=== PATIENT | male | born 1960 | race Caucasian/White ===

== ENCOUNTER 2016-12-19 11:06 | Observation (INO) | payer SELFPAY ==
[~2016-12-19] VITALS: Ht 182.9 cm; Wt 89.0 kg
[~2016-12-19 11:06] MED LIST: ATOR20TA42; COUM5TAB; DIPH2%T; MENTAX
[2016-12-19 11:09] VITALS: BP 132/69; PULSE 82; RESP 20; TEMP 97.4; O2SAT 98
[2016-12-19] MEDS ORDERED: B COTAB PO (11:23)
[2016-12-19] MEDS ORDERED: LISI2.5T3 PO (11:23)
[2016-12-19] MEDS ORDERED: JANT5TAB PO (11:23)
[2016-12-19] MEDS ORDERED: ATOR40TA16 PO (11:23)
[2016-12-19] MEDS ORDERED: TAMS0.4C4 PO (11:23)
[2016-12-19] MEDS ORDERED: FINA5TAB2 PO (11:23)
[2016-12-19] MEDS ORDERED: ASPI81CH CHEW (11:23)
[2016-12-19 11:30] VITALS: O2SAT 98
[2016-12-19] MEDS ORDERED: SODIUM CHLORIDE 0.9% FLUSH 5 ML FLUSH IVF PRN (11:30)
[2016-12-19] MEDS ORDERED: MORPHINE SULFATE 4 MG/ML INJ IV PUSH ONE (11:30)
--- NOTE | 2016-12-19 11:30 | PD ---
HPI Chief Complaint: Complaint Time Seen by Provider: 11:25 Travel History International Travel<30 days: No Contact w/Intl Traveler<30days: No Traveled to known affect area: No History of Present Illness HPI 56-year-old male with a history of hypertension, hyperlipidemia, TIA, heart valve replacement anticoagulated on Coumadin, kidney stones presents to the emergency department for evaluation of hematuria for one week. The patient states that he has had hematuria in the past but typically it goes away after a few days, this is the longest it has ever lasted. States that this morning he also began to have right lower back pain and right-sided abdominal pain. He denies any fever, chills, nausea, vomiting, diarrhea, constipation, burning with urination, painful urination. States that he has had urinary frequency over the past week as well. States that his symptoms today are similar to prior episodes of kidney stones. States that he has been taking Flomax for the past week in case it is a kidney stone. Last INR was checked 3 weeks ago and was 3. Patient is here visiting from [place]. No other complaints. PFSH Past Medical History Hx Anticoagulant Therapy: Yes (coumadin, asa) AAA: Yes (4 CM) Cardiovascular Problems: Yes (valve) High Cholesterol: Yes Cerebrovascular Accident: Yes Hypertension: Yes Kidney Stones: Yes Past Surgical History Genitourinary Surgery: Yes (VASECTOMY) Valve Replacement: Yes (2004) Social History Alcohol Use: Yes (RARE) Tobacco Use: Yes (1 PPD) Substance Use: No Allergies-Medications (Allergen,Severity, Reaction): Uncoded Allergies: ALEVE (Allergy, Intermediate, 12/06/06) Reported Meds & Prescriptions Reported Meds & Active Scripts Active Reported Tamsulosin (Tamsulosin HCl) 0.4 Mg Cap 0.4 Mg PO HS Jantoven (Warfarin) 5 Mg Tab 5 Mg PO DAILY Finasteride 5 Mg Tab 5 Mg PO DAILY Do not crush. Atorvastatin (Atorvastatin Calcium) 40 Mg Tab 40 Mg PO HS B-Complex Plus Vitamin C (B-Complex W/ C & Calcium) 1 Tab 1 Tab PO DAILY Aspirin 81 Mg Chew 81 Mg CHEW DAILY Lisinopril 2.5 Mg Tab 2.5 Mg PO DAILY Review of Systems Except as stated in HPI: all other systems reviewed are Neg Physical Exam Narrative GENERAL: Well-nourished and well-developed pleasant male patient in no acute distress who is nontoxic appearing. SKIN: Warm and dry. HEAD: Normocephalic and atraumatic. EYES: No injection, drainage, or hyphema noted. PERRLA. EOMI. ENT: No nasal drainage noted. Oropharynx is clear. NECK: Supple and the trachea is midline. CARDIOVASCULAR: Regular rate and rhythm. RESPIRATORY: Breath sounds are equal bilaterally with no accessory muscle use, wheezing, rhonchi, or crackles. GASTROINTESTINAL: Mild right lower quadrant and right flank tenderness to palpation. No rebound tenderness or guarding. Abdomen is soft and nondistended. MUSCULOSKELETAL: No obvious deformities, swelling, cyanosis, or ecchymosis is present throughout the upper and lower extremities. Patient has full range of motion without any signs of neurovascular compromise. BACK: Right CVA tenderness. NEUROLOGICAL: Awake, alert, and oriented. Normal speech and gait. Cranial nerves are grossly intact. Data Data Last Documented VS Vital Signs Date Time Temp Pulse Resp B/P Pulse Ox O2 Delivery O2 Flow Rate FiO2 12/19/16 11:30 98 12/19/16 11:09 97.4 82 20 132/69 Room Air Orders Complete Blood Count With Diff (12/19/16 11:24) Comprehensive Metabolic Panel (12/19/16 11:24) Prothrombin Time / Inr (Pt) (12/19/16 11:24) Act Partial Throm Time (Ptt) (12/19/16 11:24) Urinalysis - C+S If Indicated (12/19/16 11:24) Ct Abd/Pel W/O Iv Contrast (12/19/16 11:24) Iv Access Insert/Monitor (12/19/16 11:24) Ecg Monitoring (12/19/16 11:24) Oximetry (12/19/16 11:24) Sodium Chloride 0.9% Flush (Ns Flush) (12/19/16 11:30) Morphine Inj (Morphine Inj) (12/19/16 11:30) Ondansetron Inj (Zofran Inj) (12/19/16 11:45) Urine Culture (12/19/16 11:30) Hydromorphone Pf Inj (Dilaudid Pf Inj) (12/19/16 12:15) Ceftriaxone Inj (Rocephin Inj) (12/19/16 12:30) Hydromorphone Pf Inj (Dilaudid Pf Inj) (12/19/16 15:00) Sodium Chlor 0.9% 1000 Ml Inj (Ns 1000 M (12/19/16 14:46) Admit Order (Ed Use Only) (12/19/16 15:51) Labs Laboratory Tests Test 12/19/16 11:30 White Blood Count 14.2 TH/MM3 Red Blood Count 5.56 MIL/MM3 Hemoglobin 15.9 GM/DL Hematocrit 47.0 % Mean Corpuscular Volume 84.5 FL Mean Corpuscular Hemoglobin 28.6 PG Mean Corpuscular Hemoglobin 33.9 % Concent Red Cell Distribution Width 15.2 % Platelet Count 205 TH/MM3 Mean Platelet Volume 7.5 FL Neutrophils (%) (Auto) 75.5 % Lymphocytes (%) (Auto) 16.0 % Monocytes (%) (Auto) 7.0 % Eosinophils (%) (Auto) 0.8 % Basophils (%) (Auto) 0.7 % Neutrophils # (Auto) 10.7 TH/MM3 Lymphocytes # (Auto) 2.3 TH/MM3 Monocytes # (Auto) 1.0 TH/MM3 Eosinophils # (Auto) 0.1 TH/MM3 Basophils # (Auto) 0.1 TH/MM3 CBC Comment DIFF FINAL Differential Comment Prothrombin Time 44.6 SEC Prothromb Time International 3.8 RATIO Ratio Activated Partial 42.2 SEC Thromboplast Time Urine Color DARK-BROWN Urine Turbidity HAZY Urine pH 5.5 Urine Specific [place] 1.025 Urine Protein 100 mg/dL Urine Glucose (UA) NEG mg/dL Urine Ketones TRACE mg/dL Urine Occult Blood LARGE Urine Nitrite NEG Urine Bilirubin NEG Urine Urobilinogen LESS THAN 2.0 MG/DL Urine Leukocyte Esterase TRACE Urine RBC /hpf Urine WBC 44 /hpf Urine Calcium Oxalate Crystals MANY /hpf Urine Mucus FEW /lpf Microscopic Urinalysis Comment CULTURE INDICATED Sodium Level 134 MEQ/L Potassium Level 5.3 MEQ/L Chloride Level 101 MEQ/L Carbon Dioxide Level 26.2 MEQ/L Anion Gap 7 MEQ/L Blood Urea Nitrogen 18 MG/DL Creatinine 1.17 MG/DL Estimat Glomerular Filtration 64 ML/MIN Rate Random Glucose 124 MG/DL Calcium Level 8.3 MG/DL Total Bilirubin 0.5 MG/DL Aspartate Amino Transf 39 U/L (AST/SGOT) Alanine Aminotransferase 35 U/L (ALT/SGPT) Alkaline Phosphatase 78 U/L Total Protein 7.2 GM/DL Albumin 3.7 GM/DL MDM Medical Decision Making Medical Screen Exam Complete: Yes Emergency Medical Condition: Yes Differential Diagnosis Kidney stone versus pyelonephritis versus supratherapeutic INR Narrative Course 56-year-old male presents to the emergency department for evaluation of hematuria for one week with right flank pain for 1 day. Patient is afebrile, vital signs are stable. He does have some tenderness to palpation of the right side of his abdomen and right flank. IV access is obtained, labs were drawn and sent. CT of the abdomen and pelvis has been ordered and is pending. CBC shows an elevated white blood count of 14.2. CMP shows mild hyperkalemia with potassium of 5.3 with hemolysis noted. INR is 3.8. Urinalysis shows 100 protein, trace ketones, large occult blood, trace leukocyte Estrace, innumerable red blood cells, 44 white blood cells, many calcium oxalate crystals and few mucus. CT of the abdomen and pelvis shows hematuria involving the lower pole of the right kidney as well as the urinary bladder. There are bilateral nonobstructing renal stones although there is mild hydronephrosis involving the right kidney. The stones are quite small. The largest measures 4 mm on the right. The patient is reassessed and is still complaining of right flank pain despite 2 doses of pain medication. Discussed all findings with the patient and family. Recommend admission for pyelonephritis with right flank pain and hematuria. Will likely need urology consultation. I discussed the case with my attending physician Dr. Massey who is aware of the patients history, physical examination findings, and treatment plan. Physician Communication Physician Communication I spoke with Dr. Ramirez [facility] agrees to admit the patient to his service. He also requests that I speak with urology prison warden. I spoke with Dr. Figueredo urologist who requests patient be kept NPO and may place a stent to alleviate patient's symptoms. Diagnosis Primary Impression: Pyelonephritis Additional Impressions: Hematuria Kidney stones Admitting Information Admitting Physician Requests: Miesha Levi Dec 19, 2016 11:30
[2016-12-19 11:43] LABS: AUTOMATED NEUTROPHIL # 10.7 TH/MM3 (1.8-7.7); BASOPHIL # 0.1 TH/MM3 (0-0.2); BASOPHIL % 0.7 % (0.0-2.0); EOSINOPHIL # 0.1 TH/MM3 (0-0.4); EOSINOPHIL % 0.8 % (0.0-4.0); HEMO FLAGS DIFF FINAL; LYMPHOCYTE # 2.3 TH/MM3 (1.0-4.8); MEAN CELL VOLUME 84.5 FL (80.0-100.0); MEAN CORPUSCULAR HEMOGLOBIN 28.6 PG (27.0-34.0); MEAN CORPUSCULAR HGB CONC 33.9 % (32.0-36.0); NEUT % 75.5 % (16.0-70.0); PLATELET COUNT 205 TH/MM3 (150-450); RED BLOOD COUNT 5.56 MIL/MM3 (4.50-5.90); RED CELL DISTRIBUTION WIDTH 15.2 % (11.6-17.2); WHITE BLOOD COUNT 14.2 TH/MM3 (4.0-11.0)
[2016-12-19] MEDS ORDERED: ONDANSETRON HCL 4 MG/2 ML VIAL IV PUSH ONE (11:45)
[2016-12-19 11:56] LABS: INTERNATIONAL NORMALIZED RATIO 3.8 RATIO; PROTHROMBIN TIME - PATIENT 44.6 SEC (9.8-11.6)
[2016-12-19 11:58] LABS: APTT (PATIENT) 42.2 SEC (24.3-30.1)
[2016-12-19 12:00] LABS: ANION GAP 7 MEQ/L (5-15); AST (GOT) 39 U/L (15-37); BICARBONATE 26.2 MEQ/L (21.0-32.0); BLOOD UREA NITROGEN 18 MG/DL (7-18); CHLORIDE 101 MEQ/L (98-107); GLOMERULAR FILTRATION RATE 64 ML/MIN (>89); SODIUM (NA) 134 MEQ/L (136-145)
[2016-12-19 12:04] LABS: BLOOD, URINE LARGE (NEG); CALCIUM OXALATE CRYSTALS,URINE MANY /hpf; COMMENT (UR) CULTURE INDICATED; CULTURE IF INDICATED CULTURE INDICATED; GLUCOSE,URINE NEG (NEG); KETONE, URINE TRACE mg/dL (NEG); MUCUS URINE FEW /lpf (OCC); NITRITE,URINE NEG (NEG); PH, URINE 5.5 (5.0-8.5); URINE COLOR DARK-BROWN (YELLW/STRAW)
[2016-12-19 12:05] LABS: POTASSIUM 5.3 MEQ/L (3.5-5.1)
[2016-12-19 12:08] LABS: ALKALINE PHOSPHATASE 78 U/L (45-117); ALT (GPT) 35 U/L (12-78); TOTAL BILIRUBIN ADULT 0.5 MG/DL (0.2-1.0)
[2016-12-19] MEDS ORDERED: HYDROmorphone HCL PF 1 MG/ML VIAL IV PUSH ONE (12:15)
[2016-12-19] MEDS ORDERED: cefTRIAXone INJ 1,000 MG in SODIUM CHLORIDE 0.9% INJ 100 ML IV ONE (12:30)
--- NOTE | 2016-12-19 13:59 | RADRPT ---
EXAM DATE/TIME: 12/19/2016 13:01 [place] COMPARISON: No previous studies available for comparison. INDICATIONS : Right flank pain and hematuria. ORAL CONTRAST: No oral contrast ingested. RADIATION DOSE: 8.43 CTDIvol (mGy) MEDICAL HISTORY : Cerebrovascular disease. Renal calculi. Hypertension. SURGICAL HISTORY : None. ENCOUNTER: Initial ACUITY: 1 week PAIN SCALE: 5/10 LOCATION: Right flank TECHNIQUE: Volumetric scanning of the abdomen and pelvis was performed. Using automated exposure control and ad justment of the mA and/or kV according to patient size, radiation dose was kept as low as reasonably achievable to obtain optimal diagnostic quality images. FINDINGS: LOWER LUNGS: The visualized lower lungs are clear. LIVER: Homogeneous density without lesion. There is no dilation of the biliary tree. No calcified gallston es. SPLEEN: Normal size without lesion. PANCREAS: Within normal limits. KIDNEYS: There is a slight increase in attenuation involving the lower pole calyces and infundibula on the rig ht. There is mild hydronephrosis without hydroureter. 3 tiny stones are seen on the collecting system of the right kidney. These measure between 2 and 4 mm. 2 tiny calcifications are seen on the left co llecting system without hydronephrosis. No ureteral stones. No perinephric stranding or fluid collect ions. ADRENAL GLANDS: Within normal limits. VASCULAR: A bifurcated endograft is observed. Diffuse calcified atherosclerotic plaque of the aorta. The chemehuevi aneurysm sac is collapsed around the endograft. BOWEL/MESENTERY: The stomach, small bowel, and colon demonstrate no acute abnormality. There is no free intraperitone al air or fluid. Scattered colonic diverticuli without acute inflammation. ABDOMINAL WALL: Within normal limits. RETROPERITONEUM: There is no lymphadenopathy. BLADDER: The urinary bladder is largely decompressed. High attenuation material is seen within the lumen consi stent with blood. REPRODUCTIVE: Mandible calcifications are seen involving the peripheral aspects of the prostate gland. No discrete mass. INGUINAL: There is no lymphadenopathy or hernia. MUSCULOSKELETAL: Within normal limits for patient age. CONCLUSION: 1. Hematuria involving the lower pole of the right kidney as well as the urinary bladder. There are b ilateral nonobstructing renal stones although there is mild hydronephrosis involving the right kidney . The stones are quite small. The largest measures 4 mm on the right. 2. Colonic diverticulosis. Tc Yusuf Jr., MD on December 19, 2016 at 13:42 Board Certified Radiologist. This report was verified electronically.
[2016-12-19] MEDS ORDERED: SODIUM CHLOR 0.9% 1000 ML INJ 1,000 ML IV SCH (14:46)
[2016-12-19] MEDS ORDERED: HYDROmorphone HCL PF 2 MG/ML VIAL IVS ONE (15:00)
--- NOTE | 2016-12-19 15:41 | PD ---
Data Data Last Documented VS Vital Signs Date Time Temp Pulse Resp B/P Pulse Ox O2 Delivery O2 Flow Rate FiO2 12/19/16 11:30 98 12/19/16 11:09 97.4 82 20 132/69 Room Air Orders Complete Blood Count With Diff (12/19/16 11:24) Comprehensive Metabolic Panel (12/19/16 11:24) Prothrombin Time / Inr (Pt) (12/19/16 11:24) Act Partial Throm Time (Ptt) (12/19/16 11:24) Urinalysis - C+S If Indicated (12/19/16 11:24) Ct Abd/Pel W/O Iv Contrast (12/19/16 11:24) Iv Access Insert/Monitor (12/19/16 11:24) Ecg Monitoring (12/19/16 11:24) Oximetry (12/19/16 11:24) Sodium Chloride 0.9% Flush (Ns Flush) (12/19/16 11:30) Morphine Inj (Morphine Inj) (12/19/16 11:30) Ondansetron Inj (Zofran Inj) (12/19/16 11:45) Urine Culture (12/19/16 11:30) Hydromorphone Pf Inj (Dilaudid Pf Inj) (12/19/16 12:15) Ceftriaxone Inj (Rocephin Inj) (12/19/16 12:30) Hydromorphone Pf Inj (Dilaudid Pf Inj) (12/19/16 15:00) Sodium Chlor 0.9% 1000 Ml Inj (Ns 1000 M (12/19/16 14:46) Labs Laboratory Tests Test 12/19/16 11:30 White Blood Count 14.2 TH/MM3 Red Blood Count 5.56 MIL/MM3 Hemoglobin 15.9 GM/DL Hematocrit 47.0 % Mean Corpuscular Volume 84.5 FL Mean Corpuscular Hemoglobin 28.6 PG Mean Corpuscular Hemoglobin 33.9 % Concent Red Cell Distribution Width 15.2 % Platelet Count 205 TH/MM3 Mean Platelet Volume 7.5 FL Neutrophils (%) (Auto) 75.5 % Lymphocytes (%) (Auto) 16.0 % Monocytes (%) (Auto) 7.0 % Eosinophils (%) (Auto) 0.8 % Basophils (%) (Auto) 0.7 % Neutrophils # (Auto) 10.7 TH/MM3 Lymphocytes # (Auto) 2.3 TH/MM3 Monocytes # (Auto) 1.0 TH/MM3 Eosinophils # (Auto) 0.1 TH/MM3 Basophils # (Auto) 0.1 TH/MM3 CBC Comment DIFF FINAL Differential Comment Prothrombin Time 44.6 SEC Prothromb Time International 3.8 RATIO Ratio Activated Partial 42.2 SEC Thromboplast Time Urine Color DARK-BROWN Urine Turbidity HAZY Urine pH 5.5 Urine Specific [place] 1.025 Urine Protein 100 mg/dL Urine Glucose (UA) NEG mg/dL Urine Ketones TRACE mg/dL Urine Occult Blood LARGE Urine Nitrite NEG Urine Bilirubin NEG Urine Urobilinogen LESS THAN 2.0 MG/DL Urine Leukocyte Esterase TRACE Urine RBC /hpf Urine WBC 44 /hpf Urine Calcium Oxalate Crystals MANY /hpf Urine Mucus FEW /lpf Microscopic Urinalysis Comment CULTURE INDICATED Sodium Level 134 MEQ/L Potassium Level 5.3 MEQ/L Chloride Level 101 MEQ/L Carbon Dioxide Level 26.2 MEQ/L Anion Gap 7 MEQ/L Blood Urea Nitrogen 18 MG/DL Creatinine 1.17 MG/DL Estimat Glomerular Filtration 64 ML/MIN Rate Random Glucose 124 MG/DL Calcium Level 8.3 MG/DL Total Bilirubin 0.5 MG/DL Aspartate Amino Transf 39 U/L (AST/SGOT) Alanine Aminotransferase 35 U/L (ALT/SGPT) Alkaline Phosphatase 78 U/L Total Protein 7.2 GM/DL Albumin 3.7 GM/DL [facility] Supervised Visit with DONTE: Yes Narrative Course The history, exam, and medical decision-making in the associated midlevel provider note were completed with my assistance. I reviewed and agree with the findings presented. I attest that I had a [id number] encounter with the patient on the same day, and personally performed and documented my assessment and findings in the medical record. *My assessment and Findings: This is a 56-year-old male who has a history of mechanical valve on anticoagulation who presents to the emergency department with right sided flank pain and hematuria. His INR slightly supratherapeutic. CT demonstrates some blood in the kidney and in the bladder with some hydronephrosis. He does have a leukocytosis. I'm not sure what's causing the patient's pain. It's possible that he passed a stone, he may also have pyelonephritis. Given we can't reverse his anticoagulation due to his mechanical valve I think it's reasonable to place him on antibiotics, continue pain control and admit him to the hospital for observation. Diagnosis Primary Impression: Pyelonephritis Additional Impression: Hematuria Sydnie Massey MD Dec 19, 2016 15:41
[2016-12-19] MEDS ORDERED: ACETAMINOPHEN 325 MG TAB PO PRN (16:30)
[2016-12-19] MEDS ORDERED: MAGNESIUM HYDROXIDE SUSP 30 ML CUP PO PRN (16:30)
[2016-12-19] MEDS ORDERED: ACETAMINOPHEN/HYDROcodone 325 MG/5 MG TAB PO PRN (16:30)
[2016-12-19] MEDS ORDERED: NALOXONE HCL 0.4 MG/ML AMP IV PRN (16:30)
[2016-12-19] MEDS ORDERED: ONDANSETRON HCL 4 MG/2 ML VIAL IVP PRN (16:30)
[2016-12-19] MEDS ORDERED: HYDROmorphone HCL PF 1 MG/ML VIAL IV PRN (16:30)
[2016-12-19] MEDS ORDERED: ACETAMINOPHEN/HYDROcodone 325 MG/7.5 MG TAB PO PRN (16:30)
[2016-12-19] MEDS ORDERED: SODIUM CHLORIDE 0.9% FLUSH 5 ML FLUSH FLUSH PRN (16:30)
[2016-12-19] MEDS ORDERED: PILL SPLITTER OTHER PRN (16:45)
[2016-12-19 17:20] VITALS: BP 103/68; PULSE 78; RESP 16; O2SAT 94
--- NOTE | 2016-12-19 17:22 | HHI.HP ---
[facility] Service [facility] Primary Care Physician Non-Staff Admission Diagnosis Right Pyelonephritis, Hematuria Diagnoses: Chief Complaint: hematuria Travel History International Travel<30 Days: No Contact w/Intl Traveler <30 Da: No Traveled to Known Affected Are: No History of Present Illness 56-year-old male with history of HTN, HLD, TIA, mechanical heart valve on Coumadin, AAA, nephrolithiasis, presents with a one-week history of hematuria. The patient reports he has had chronic intermittent hematuria however it has now been persistent over the past 1 week. No fevers/chills. He did have intermittent waxing/waning right flank pain with radiation into the right lower quadrant that started around 7:30am today. He called his urologist in [place] who instructed him to come to the ER. He has still been able to urinate. Urine described as mostly dark brown/red but has also seen bright red clots. In the past, nephrolithiasis has been treated with lithotripsy and others have passed on their own. He saw his urologist a few weeks ago, had a stone in the bladder at that time, did not have any pain. Denies any chest pain , palpitations, or shortness of breath. Denies any nausea/vomiting or diarrhea. Denies any dysuria or increased urinary urgency/frequency. Denies any other medical complaints at this time. Review of Systems Constitutional: DENIES: Fever, Chills, Dizziness, Change in appetite Endocrine: DENIES: Polydipsia, Polyuria, Polyphagia Eyes: DENIES: Blurred vision, Eye pain Ears, nose, mouth, throat: DENIES: Throat pain, Running Nose, Odynophagia Respiratory: DENIES: Cough, Shortness of breath Cardiovascular: DENIES: Chest pain, Palpitations, Dyspnea on Exertion, Lower Extremity Edema Gastrointestinal: COMPLAINS OF: Abdominal pain, DENIES: Constipation, Diarrhea , Nausea, Vomiting Genitourinary: COMPLAINS OF: Hematuria, DENIES: Urinary frequency, Urgency, Dysuria Musculoskeletal: DENIES: Back pain, Neck pain Integumentary: DENIES: Pruritus, Rash Hematologic/lymphatic: DENIES: Bruising, Lymphadenopathy Immunologic/allergic: DENIES: Eczema, Urticaria Neurologic: DENIES: Abnormal gait, Headache, Localized weakness Psychiatric: DENIES: Anxiety, Depression Except as stated in HPI: all other systems reviewed are Neg Past Family Social History Past Medical History HTN HLD TIAs 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 Atorvastatin (Atorvastatin Calcium) 40 Mg Tab 40 Mg PO HS B-Complex Plus Vitamin C (B-Complex W/ C & Calcium) 1 Tab 1 Tab PO DAILY Aspirin 81 Mg Chew 81 Mg CHEW DAILY Lisinopril 2.5 Mg Tab 2.5 Mg PO DAILY Allergies: Uncoded Allergies: ALEVE (Allergy, Intermediate, 12/06/06) Active Ordered Medications Current Medications Medications (Trade) Dose Ordered Sig/[place] Route Start Time Stop Time Status Last Admin (Rocephin Inj/NS Inj) 100 ml @ 200 mls/hr Q24H IV 12/20/16 12:00 (NS Flush) 2 ml UNSCH PRN FLUSH 12/19/16 16:30 (NS Flush) 2 ml BID FLUSH 12/19/16 21:00 (Zofran Inj) 4 mg Q6H PRN IVP 12/19/16 16:30 (Colace) 100 mg Q12H PO 12/19/16 18:00 (Milk Of Magnesia Liq) 30 ml Q12H PRN PO 12/19/16 16:30 (Tylenol) 650 mg Q6H PRN PO 12/19/16 16:30 ([place] 5-325 Mg) 1 tab Q4H PRN PO 12/19/16 16:30 ([place] 7.5-325 Mg) 1 tab Q4H PRN PO 12/19/16 16:30 (Dilaudid Pf Inj) 0.5 mg Q4H PRN IV 12/19/16 16:30 (Narcan Inj) 0.4 mg UNSCH PRN IV 12/19/16 16:30 (Lipitor) 40 mg HS PO 12/19/16 21:00 (Proscar) 5 mg DAILY PO 12/20/16 09:00 (Flomax) 0.4 mg HS PO 12/19/16 21:00 (Prinivil) 2.5 mg DAILY PO 12/20/16 09:00 (Pill Splitter) 1 ea UNSCH PRN OTHER 12/19/16 16:45 Family History Mother with cervical cancer, Father with prostate issues Social History Smokes tobacco,1 PPD since age 14 Denies alcohol use Denies illicit drug use Physical Exam Vital Signs Vital Signs Date Time Temp Pulse Resp B/P Pulse Ox O2 Delivery O2 Flow Rate FiO2 12/19/16 11:30 98 12/19/16 11:09 97.4 82 20 132/69 98 Room Air Physical Exam GENERAL: Well-nourished, well-developed pleasant middle aged male patient in [facility]. SKIN: Warm and dry. No rash. HEAD: Normocephalic. Atraumatic. EYES: Pupils equal and round. No scleral icterus. No injection or drainage. ENT: No nasal bleeding or discharge. Mucous membranes pink and moist. NECK: Supple. Trachea midline. CARDIOVASCULAR: Regular rate and rhythm. S1, S2 noted. Mechanical murmur noted. RESPIRATORY: No accessory muscle use. Clear to auscultation. Breath sounds equal bilaterally. GASTROINTESTINAL: Abdomen soft, nondistended, nontender. Normoactive bowel sounds x4. MUSCULOSKELETAL: No obvious deformities. Extremities without clubbing, cyanosis , or edema. No CVA tenderness currently. NEUROLOGICAL: Awake and alert. No obvious cranial nerve deficits. Motor grossly within normal limits. 5/5 muscle strength in bilateral upper and lower extremities. Normal speech. PSYCHIATRIC: Appropriate mood and affect; insight and judgment normal. Laboratory Laboratory Tests Test 12/19/16 11:30 White Blood Count 14.2 Red Blood Count 5.56 Hemoglobin 15.9 Hematocrit 47.0 Mean Corpuscular Volume 84.5 Mean Corpuscular Hemoglobin 28.6 Mean Corpuscular Hemoglobin 33.9 Concent Red Cell Distribution Width 15.2 Platelet Count 205 Mean Platelet Volume 7.5 Neutrophils (%) (Auto) 75.5 Lymphocytes (%) (Auto) 16.0 Monocytes (%) (Auto) 7.0 Eosinophils (%) (Auto) 0.8 Basophils (%) (Auto) 0.7 Neutrophils # (Auto) 10.7 Lymphocytes # (Auto) 2.3 Monocytes # (Auto) 1.0 Eosinophils # (Auto) 0.1 Basophils # (Auto) 0.1 CBC Comment DIFF FINAL Differential Comment Prothrombin Time 44.6 Prothromb Time International 3.8 Ratio Activated Partial 42.2 Thromboplast Time Urine Color DARK-BROWN Urine Turbidity HAZY Urine pH 5.5 Urine Specific [place] 1.025 Urine Protein 100 Urine Glucose (UA) NEG Urine Ketones TRACE Urine Occult Blood LARGE Urine Nitrite NEG Urine Bilirubin NEG Urine Urobilinogen LESS THAN 2.0 Urine Leukocyte Esterase TRACE Urine RBC Urine WBC 44 Urine Calcium Oxalate Crystals MANY Urine Mucus FEW Microscopic Urinalysis Comment CULTURE INDICATED Sodium Level 134 Potassium Level 5.3 Chloride Level 101 Carbon Dioxide Level 26.2 Anion Gap 7 Blood Urea Nitrogen 18 Creatinine 1.17 Estimat Glomerular Filtration 64 Rate Random Glucose 124 Calcium Level 8.3 Total Bilirubin 0.5 Aspartate Amino Transf 39 (AST/SGOT) Alanine Aminotransferase 35 (ALT/SGPT) Alkaline Phosphatase 78 Total Protein 7.2 Albumin 3.7 Date/Time Procedure Status Source Growth 12/19/16 11:30 Urine Culture Received Urine Clean Catch Pending Result Diagram: 12/19/16 1130 12/19/16 1130 Imaging Last Impressions Abdomen/Pelvis CT 12/19/16 1124 Signed Impressions: Service Date/Time: Monday, December 19, 2016 13:01 - CONCLUSION: 1. Hematuria involving the lower pole of the right kidney as well as the urinary bladder. There are bilateral nonobstructing renal stones although there is mild hydronephrosis involving the right kidney. The stones are quite small. The largest measures 4 mm on the right. 2. Colonic diverticulosis. Tc Yusuf Jr., MD Assessment and Plan Problem List: (1) Hematuria ICD Code: R31.9 Status: Acute (2) Pyelonephritis ICD Code: N12 Status: Acute (3) Kidney stones ICD Code: N20.0 Status: Acute Assessment and Plan 56-year-old male with history of HTN, HLD, TIA, mechanical heart valve on Coumadin, AAA, nephrolithiasis, presents with a one-week history of hematuria and 1 day hx of right flank pain Pyelonephritis/Hydronephrosis with Hematuria & R Flank Pain: Labs reviewed, WBC 14.2K. Afebrile. UA with large occult blood and RBCs, trace leuks, and [address] abd/pelvis images reviewed by me, shows hematuria involving the right kidney and urinary bladder; bilateral nonobstructing renal stones although there is mild hydronephrosis involving the right kidney; stones are quite small; largest measures 4 mm on the right. -Continue IV Rocephin -Monitor urine culture -S/p IVF bolus -Continue Flomax and Proscar -Hold aspirin/Coumadin -Monitor CBC, currently Hgb stable -Consult urology, ER discussed with Dr. Figueredo - keep NPO, may need ureteral stent placed Mechanical Valve with Supratherapeutic INR: on anticoagulation with Coumadin for mechanical valve. INR 3.8. -Hold Coumadin today. Plan to resume tomorrow with frequent INR monitoring. -Monitor daily INR and CBC. Hyperlipidemia: Chronic -continue patient's statin Hypertension: Chronic -continue patient's lisinopril -monitor BP, adjust antihypertensives as needed DVT Prophylaxis: teds/SCDs, Coumadin on hold with supratherapeutic INR Written by Alix Carrera, acting as scribe for Dr. Ramirez on 12/19/16 at 17: 46. All or portions of this note were transcribed by scribe [SAMIRA Boyd] . I, Dr. Aye Ramirez personally performed the history, physical exam, and medical decision making; and confirmed the accuracy of the information in the transcribed note. Authenticated by Dr. Aye Ramirez on 12/19/16 at 19:46. Discussed Condition With Patient, ER Alix Albarran PA-C Dec 19, 2016 17:22 Aye Ramirez MD Dec 19, 2016 19:47
[2016-12-19] MEDS: DOCUSATE SODIUM 100 MG CAP PO SCH (18:00)
[2016-12-19 18:04] VITALS: BP 123/69; PULSE 81; RESP 19; TEMP 96.6; O2SAT 94
[2016-12-19 19:15] VITALS: BP 122/67; PULSE 72; RESP 20; TEMP 97.6; O2SAT 95
--- NOTE | 2016-12-19 19:27 | PD.CONS ---
HPI Service Urology Consult Requested By Primary Care Physician Non-Staff Diagnosis: (1) Hematuria ICD Code: R31.9 (2) Pyelonephritis ICD Code: N12 (3) Kidney stones ICD Code: N20.0 History of Present Illness 56yo male with history of mechanical heart valve and TIA on coumadin as well as HTN admitted for right flank pain and concern for UTI seen in consultation for right hydronephrosis and nephrolithiasis. Patient reports he has a history of kidney stones in the past and is followed by a Urologist up [place] where he resides. [place]. He began to notice significant right flank pain earlier today, radiating to right groin and sharp that persisted with gross hematuria. He has passed some clots. Patient reports this is similar to his prior stone episodes. CT scan identified mild right hydronephrosis, however no stone noted along the ureter to cause obstruction. Patient now reports his pain has resolved. Denies any fevers, no Nausea or vomiting. Patient reports his hematuria clears up near the end of his stream. Review of Systems ROS Limitations: Clinical Condition Constitutional: DENIES: Fever Endocrine: DENIES: Polyuria Eyes: DENIES: Blurred vision Ears, nose, mouth, throat: DENIES: Hearing loss Respiratory: DENIES: Cough Cardiovascular: DENIES: Chest pain Gastrointestinal: DENIES: Abdominal pain, Nausea, Vomiting Genitourinary: COMPLAINS OF: Hematuria, DENIES: Dysuria Musculoskeletal: DENIES: Back pain Integumentary: DENIES: Abnormal pigmentation Hematologic/lymphatic: DENIES: Bruising Immunologic/allergic: DENIES: Eczema Neurologic: DENIES: Abnormal gait Psychiatric: DENIES: Anxiety Except as stated in HPI: all other systems reviewed are Neg Past Family Social History Past Medical History HTN HLD TIAs mechanical heart valve 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 Atorvastatin (Atorvastatin Calcium) 40 Mg Tab 40 Mg PO HS B-Complex Plus Vitamin C (B-Complex W/ C & Calcium) 1 Tab 1 Tab PO DAILY Aspirin 81 Mg Chew 81 Mg CHEW DAILY Lisinopril 2.5 Mg Tab 2.5 Mg PO DAILY Allergies: Uncoded Allergies: ALEVE (Allergy, Intermediate, 12/06/06) Active Ordered Medications Current Medications Medications (Trade) Dose Ordered Sig/Gary Route Start Time Stop Time Status Last Admin (Rocephin Inj/NS Inj) 100 ml @ 200 mls/hr Q24H IV 12/20/16 12:00 (NS Flush) 2 ml UNSCH PRN FLUSH 12/19/16 16:30 (NS Flush) 2 ml BID FLUSH 12/19/16 21:00 (Zofran Inj) 4 mg Q6H PRN IVP 12/19/16 16:30 (Colace) 100 mg Q12H PO 12/19/16 18:00 (Milk Of Magnesia Liq) 30 ml Q12H PRN PO 12/19/16 16:30 (Tylenol) 650 mg Q6H PRN PO 12/19/16 16:30 ([place] 5-325 Mg) 1 tab Q4H PRN PO 12/19/16 16:30 ([place] 7.5-325 Mg) 1 tab Q4H PRN PO 12/19/16 16:30 (Dilaudid Pf Inj) 0.5 mg Q4H PRN IV 12/19/16 16:30 (Narcan Inj) 0.4 mg UNSCH PRN IV 12/19/16 16:30 (Lipitor) 40 mg HS PO 12/19/16 21:00 (Proscar) 5 mg DAILY PO 12/20/16 09:00 (Flomax) 0.4 mg HS PO 12/19/16 21:00 (Prinivil) 2.5 mg DAILY PO 12/20/16 09:00 (Pill Splitter) 1 ea UNSCH PRN OTHER 12/19/16 16:45 Family History Mother with cervical cancer, Father with prostate issues Social History Smokes tobacco,1 PPD since age 14 Denies alcohol use Denies illicit drug use Physical Exam Vital Signs Date Time Temp Pulse Resp B/P Pulse Ox O2 Delivery O2 Flow Rate FiO2 12/19/16 18:04 96.6 81 19 123/69 94 12/19/16 17:20 78 16 103/68 94 12/19/16 11:30 98 12/19/16 11:09 97.4 82 20 132/69 98 Room Air Physical Exam GENERAL: This is a well-nourished, well-developed patient, in no apparent distress. SKIN: No rashes, ecchymoses or lesions. Cool and dry. HEAD: Atraumatic. Normocephalic.. EYES: Extraocular motions intact. No scleral icterus. No injection or drainage. ENT: Nose without bleeding, purulent drainage. Airway patent. NECK: Trachea midline. No JVD or lymphadenopathy. CARDIOVASCULAR: Normal pulses, well perfused extremities RESPIRATORY: Nonlabored respirations, equal chest rise GASTROINTESTINAL: Abdomen soft, non-tender, nondistended. GENITOURINARY: No CVA tenderness MUSCULOSKELETAL: Extremities without clubbing, cyanosis, or edema. NEUROLOGICAL: Awake and alert. Motor and sensory grossly within normal limits. Normal speech. Laboratory Tests Test 12/19/16 11:30 White Blood Count 14.2 Red Blood Count 5.56 Hemoglobin 15.9 Hematocrit 47.0 Mean Corpuscular Volume 84.5 Mean Corpuscular Hemoglobin 28.6 Mean Corpuscular Hemoglobin 33.9 Concent Red Cell Distribution Width 15.2 Platelet Count 205 Mean Platelet Volume 7.5 Neutrophils (%) (Auto) 75.5 Lymphocytes (%) (Auto) 16.0 Monocytes (%) (Auto) 7.0 Eosinophils (%) (Auto) 0.8 Basophils (%) (Auto) 0.7 Neutrophils # (Auto) 10.7 Lymphocytes # (Auto) 2.3 Monocytes # (Auto) 1.0 Eosinophils # (Auto) 0.1 Basophils # (Auto) 0.1 CBC Comment DIFF FINAL Differential Comment Prothrombin Time 44.6 Prothromb Time International 3.8 Ratio Activated Partial 42.2 Thromboplast Time Urine Color DARK-BROWN Urine Turbidity HAZY Urine pH 5.5 Urine Specific Dexter 1.025 Urine Protein 100 Urine Glucose (UA) NEG Urine Ketones TRACE Urine Occult Blood LARGE Urine Nitrite NEG Urine Bilirubin NEG Urine Urobilinogen LESS THAN 2.0 Urine Leukocyte Esterase TRACE Urine RBC Urine WBC 44 Urine Calcium Oxalate Crystals MANY Urine Mucus FEW Microscopic Urinalysis Comment CULTURE INDICATED Sodium Level 134 Potassium Level 5.3 Chloride Level 101 Carbon Dioxide Level 26.2 Anion Gap 7 Blood Urea Nitrogen 18 Creatinine 1.17 Estimat Glomerular Filtration 64 Rate Random Glucose 124 Calcium Level 8.3 Total Bilirubin 0.5 Aspartate Amino Transf 39 (AST/SGOT) Alanine Aminotransferase 35 (ALT/SGPT) Alkaline Phosphatase 78 Total Protein 7.2 Albumin 3.7 Date/Time Procedure Status Source Growth 12/19/16 11:30 Urine Culture Received Urine Clean Catch Pending Result Diagram: 12/19/16 1130 12/19/16 1130 Imaging Last Impressions Abdomen/Pelvis CT 12/19/16 1124 Signed Impressions: Service Date/Time: Monday, December 19, 2016 13:01 - CONCLUSION: 1. Hematuria involving the lower pole of the right kidney as well as the urinary bladder. There are bilateral nonobstructing renal stones although there is mild hydronephrosis involving the right kidney. The stones are quite small. The largest measures 4 mm on the right. 2. Colonic diverticulosis. Tc Yusuf Jr., MD Assessment and Plan Problem List: (1) Kidney stones ICD Code: N20.0 Status: Acute (2) Hematuria ICD Code: R31.9 Status: Acute (3) Pyelonephritis ICD Code: N12 Status: Acute Assessment and Plan 56yo male with history of nephrolithiasis and hematuria with INR of 3.8 -Review of CT scan identifies the mild right hydronephrosis, however no obstructing stone seen -Clinical exam reveals patient to be comfortable, no pain, no fevers, no N/V. No evidence of obstructive process -Patient likely passed a kidney stone, which would account for the mildly elevated WBC, pain, and hematuria -No surgical intervention indicated at this time -Recommend urine culture and control of his INR to prevent further bleeding -Patient also has a large prostate visible on CT scan and may be contributing to his hematuria -Instructed patient to follow-up with his Urologist back home after discharge -Please call with questions Emre Figueredo MD Dec 19, 2016 19:27
[2016-12-19] MEDS: SODIUM CHLORIDE 0.9% FLUSH 5 ML FLUSH FLUSH SCH (20:50)
[2016-12-19] MEDS ORDERED: TAMSULOSIN HCL 0.4 MG CAP PO SCH (21:00)
[2016-12-19] MEDS ORDERED: ATORVASTATIN 40 MG TAB PO SCH (21:00)
[2016-12-20 00:29] VITALS: BP 100/53; PULSE 85; RESP 20; O2SAT 95
[2016-12-20 04:03] VITALS: BP 113/62; PULSE 82; RESP 20; TEMP 98.8; O2SAT 95
[2016-12-20] MEDS: DOCUSATE SODIUM 100 MG CAP PO SCH (05:43)
[2016-12-20 06:48] LABS: INTERNATIONAL NORMALIZED RATIO 2.8 RATIO
[2016-12-20 06:54] LABS: AUTOMATED NEUTROPHIL # 12.1 TH/MM3 (1.8-7.7); BASOPHIL # 0.1 TH/MM3 (0-0.2); BASOPHIL % 0.7 % (0.0-2.0); EOSINOPHIL # 0.2 TH/MM3 (0-0.4); EOSINOPHIL % 1.5 % (0.0-4.0); HEMATOCRIT 49.2 % (39.0-51.0); HEMO FLAGS DIFF FINAL; LYMPH % 12.9 % (9.0-44.0); MEAN CELL VOLUME 83.7 FL (80.0-100.0); MEAN CORPUSCULAR HEMOGLOBIN 28.2 PG (27.0-34.0); MEAN CORPUSCULAR HGB CONC 33.7 % (32.0-36.0); MONO % 7.7 % (0.0-8.0); NEUT % 77.2 % (16.0-70.0); PLATELET COUNT 209 TH/MM3 (150-450); RED BLOOD COUNT 5.87 MIL/MM3 (4.50-5.90); RED CELL DISTRIBUTION WIDTH 15.6 % (11.6-17.2); WHITE BLOOD COUNT 15.6 TH/MM3 (4.0-11.0)
[2016-12-20 07:06] LABS: ANION GAP 8 MEQ/L (5-15); AST (GOT) 16 U/L (15-37); BICARBONATE 27.3 MEQ/L (21.0-32.0); BLOOD UREA NITROGEN 14 MG/DL (7-18); CHLORIDE 106 MEQ/L (98-107); GLOMERULAR FILTRATION RATE 67 ML/MIN (>89); POTASSIUM 4.6 MEQ/L (3.5-5.1); SODIUM (NA) 141 MEQ/L (136-145)
[2016-12-20 07:09] LABS: ALKALINE PHOSPHATASE 73 U/L (45-117); ALT (GPT) 30 U/L (12-78); TOTAL BILIRUBIN ADULT 0.7 MG/DL (0.2-1.0)
[2016-12-20 07:18] VITALS: BP 123/70; PULSE 92; RESP 18; TEMP 96.1; O2SAT 88
[2016-12-20] MEDS: SODIUM CHLORIDE 0.9% FLUSH 5 ML FLUSH FLUSH SCH (08:31)
[2016-12-20] MEDS ORDERED: LISINOPRIL 5 MG TAB PO SCH (09:00)
[2016-12-20] MEDS ORDERED: NON-FORMULARY DRUG (Lisinopril 2.5 MG) PO SCH (09:00)
[2016-12-20] MEDS ORDERED: FINASTERIDE 5 MG TAB PO SCH (09:00)
[2016-12-20] MEDS ORDERED: WARF-20 PO (09:08)
--- NOTE | 2016-12-20 09:10 | HHI.PR ---
Subjective Remarks Patient reports that he is feeling better. No more pain. Urine still dark. Objective Vitals Vital Signs Date Time Temp Pulse Resp B/P Pulse Ox O2 Delivery O2 Flow Rate FiO2 12/20/16 07:18 96.1 92 18 123/70 88 12/20/16 04:03 98.8 82 20 113/62 95 12/20/16 00:29 85 20 100/53 95 12/19/16 19:15 97.6 72 20 122/67 95 12/19/16 18:04 96.6 81 19 123/69 94 12/19/16 17:20 78 16 103/68 94 12/19/16 11:30 98 12/19/16 11:09 97.4 82 20 132/69 98 Room Air I/O 12/19/16 12/19/16 12/19/16 12/20/16 12/20/16 12/20/16 07:00 15:00 23:00 07:00 15:00 23:00 Output Total 400 ml 1000 ml Balance -400 ml -1000 ml Output Urine Total 400 ml 1000 ml # Voids 1 Result Diagram: 12/20/16 0600 12/20/16 0600 Imaging Last Impressions Abdomen/Pelvis CT 12/19/16 1124 Signed Impressions: Service Date/Time: Monday, December 19, 2016 13:01 - CONCLUSION: 1. Hematuria involving the lower pole of the right kidney as well as the urinary bladder. There are bilateral nonobstructing renal stones although there is mild hydronephrosis involving the right kidney. The stones are quite small. The largest measures 4 mm on the right. 2. Colonic diverticulosis. Tc Yusuf Jr., MD Objective Remarks GENERAL: This is a well-nourished, well-developed patient, in no apparent distress. CARDIOVASCULAR: Normal rate and regular rhythm without murmurs, gallops, or rubs. RESPIRATORY: Good respiratory efforts. Breath sounds equal and clear to auscultation bilaterally. GASTROINTESTINAL: Abdomen soft, non-tender, non-distended. Normal active bowel sounds MUSCULOSKELETAL: Extremities without cyanosis, or edema. NEURO: Alert & Oriented x4 to person, place, time, situation. Moves all ext x4 PSYCH: Appropriate mood and affect. A/P Problem List: (1) Hematuria ICD Code: R31.9 Status: Acute (2) Pyelonephritis ICD Code: N12 Status: Acute (3) Kidney stones ICD Code: N20.0 Status: Acute Assessment and Plan 56-year-old male admitted with hematuria, nephrolithiasis, concern for pyelonephritis. The patient was evaluated by urology. Assessment is that he probably passed a stone. His pain completely resolved. Urine culture at 24 hours is negative. The patient did not have any fevers or suprapubic pain. No dysuria. He is on Coumadin for heart valve.. His INR was mildly supratherapeutic. This was put on hold and INR went down to 2.8. The patient is not local, he plans to return home tomorrow and follow-up with his urologist and PCP on Thursday. He is discharged home. He was advised to hold Aspirin today and tomorrow. Go down to 4 mg on Coumadin until recheck on Thursday. He will follow up with his Urologist back home on Thursday. We discussed reasons to seek further emergent medical care. Discharge home in good condition Activity: Regular as tolerated Diet: Regular, Coumadin diet Meds: Per med rec Follow-up: With PCP and urology on Thursday Aye Ramirez MD Dec 20, 2016 09:10
--- NOTE | 2016-12-20 09:11 | HHI.DCPOC ---
Discharge Care Plan Diagnosis: (1) Kidney stones (2) Hematuria (3) Abnormal urinalysis Goals to Promote Your Health * To prevent worsening of your condition and complications * To maintain your health at the optimal level Directions to Meet Your Goals Take your medications as prescribed Follow your dietary instruction Follow activity as directed Keep your appointments as scheduled Take your immunizations and boosters as scheduled If your symptoms worsen call your PCP, if no PCP go to Urgent Care Center or Emergency Room Smoking is Dangerous to Your Health. Avoid second hand smoke Call the 24-hour hour crisis hotline for domestic abuse at Aye Ramirez MD Dec 20, 2016 09:10
[2016-12-20] MEDS ORDERED: cefTRIAXone INJ 1,000 MG in SODIUM CHLORIDE 0.9% INJ 100 ML IV SCH (12:00)
== END 2016-12-20 10:51 | disposition home or self-care (01) ==
LOC: NEPC 11:06 → NEDA 15:53 → NEPHCDU 17:58
PROVIDERS: ADMIT Family Medicine; ATTEND Family Medicine
DX: N13.6 Pyonephrosis (principal); Z79.01 Long term (current) use of anticoagulants; Z95.2 Presence of prosthetic heart valve; Z87.442 Personal history of urinary calculi; Z86.73 Personal history of transient ischemic attack (TIA), and cerebral infarction without residual deficits; I10 Essential (primary) hypertension; E78.5 Hyperlipidemia, unspecified; M54.5 Low back pain; R10.9 Unspecified abdominal pain; R35.0 Frequency of micturition; I71.4 Abdominal aortic aneurysm, without rupture; E78.00 Pure hypercholesterolemia, unspecified; F17.210 Nicotine dependence, cigarettes, uncomplicated; Z79.899 Other long term (current) drug therapy; E87.5 Hyperkalemia; K57.30 Diverticulosis of large intestine without perforation or abscess without bleeding; N20.0 Calculus of kidney
CPT/HCPCS: 74176; 80053; 81001; 85025; 85610; 85730; 87086; 96365; 96375; 96376; 99284; G0378; J0696; J1170; J2270; J2405; J7030